=== PATIENT | female | born 1940 | race Caucasian/White ===

== ENCOUNTER 2019-06-03 20:47 | Emergency (ER) | payer OTHER ==
[~2019-06-03] VITALS: Ht 147.3 cm; Wt 141.5 kg
--- NOTE | 2019-06-03 21:10 | NUR ---
Dr. Funez at bedside for MSE.
[2019-06-03] MEDS ORDERED: ONDANSETRON ODT 4 MG TAB.RAPDIS SL ONE (21:15)
[2019-06-03] MEDS ORDERED: ONDANSETRON ODT 4 MG TAB.RAPDIS ONE (21:58)
--- NOTE | 2019-06-03 22:10 | NUR ---
Unable to start IV after multiple attempts, aware.
[2019-06-03 22:16] LABS: BASOPHILS % (AUTO) 0.1 % (0.0-2.0); EOSINOPHILS # (AUTO) 0.1 K/uL (0.0-0.7); EOSINOPHILS % (AUTO) 0.4 % (0.0-7.0); HEMATOCRIT 35.3 % (31.2-41.9); HEMOGLOBIN 11.4 g/dL (10.9-14.3); LYMPHOCYTES # (AUTO) 0.7 K/uL (20.0-40.0); LYMPHOCYTES % (AUTO) 3.5 % (20.5-51.5); MEAN CORPUSCULAR HEMOGLOBIN 31.6 uug (24.7-32.8); MEAN CORPUSCULAR HGB CONC 32 g/dL (32.3-35.6); MEAN CORPUSCULAR VOLUME 97.6 fL (75.5-95.3); MONOCYTES # (AUTO) 0.8 K/uL (2.0-10.0); MONOCYTES % (AUTO) 3.8 % (0.0-11.0); NEUTROPHILS # (AUTO) 19.2 K/uL (1.8-8.9); NEUTROPHILS % (AUTO) 92.2 % (38.5-71.5); PLATELET COUNT (AUTO) 187 K/uL (179-408); RED BLOOD CELL COUNT(AUTO) 3.62 MIL/uL (3.63-4.92); WHITE BLOOD COUNT (AUTO) 20.9 K/uL (3.8-11.8)
[2019-06-03 22:20] LABS: CARBON DIOXIDE 31 mmol/L (21-32); CHLORIDE 100 mmol/L (98-107); CREATININE 4.5 mg/dL (0.6-1.3); GLUCOSE 229 mg/dL (74-106); POTASSIUM 4.4 mmol/L (3.5-5.1); UREA NITROGEN, BLOOD 44 mg/dL (7-18)
--- NOTE | 2019-06-03 22:20 | NUR ---
Pt out of ER for CT.
[2019-06-03 22:25] LABS: ALANINE AMINOTRANSFERASE 10 U/L (14-59); ALKALINE PHOSPHATASE 105 U/L (50-136); ASPARTATE AMINOTRANSFERASE 11 U/L (15-37); BILIRUBIN,DIRECT 0.1 mg/dL (0.0-0.2); BILIRUBIN,TOTAL 0.3 mg/dL (0.2-1.0); LIPASE 159 U/L (73-393); TOTAL PROTEIN, SERUM 7.3 g/dL (6.4-8.2)
[2019-06-03 22:26] LABS: MAGNESIUM 2.3 mg/dL (1.8-2.4); PHOSPHOROUS 2.9 mg/dL (2.5-4.9)
--- NOTE | 2019-06-03 22:45 | NUR ---
Pt back to ER from CT.
--- NOTE | 2019-06-03 23:30 | NUR ---
Inserted in/out west catheter, pt tolerated procedure well, urine sample sent to lab.
[2019-06-03 23:52] LABS: *BILIRUBIN,URIN NEGATIVE (NEGATIVE); *BLOOD, URINE 1+ (NEGATIVE); *CLARITY,URINE CLOUDY (CLEAR); *COLOR,URINE YELLOW (YELLOW); *KETONES,URINE NEGATIVE (NEGATIVE); *UROBILINOGEN,URINE 0.2 E.U./dl (NORMAL); LEUKOCYTE ESTERASE ,URINE 1+ (NEGATIVE); NITRITE, URINE NEGATIVE (NEGATIVE); PH,URINE 5.5 (5.0-8.0); UGLUCOSE TRACE (NEGATIVE)
[2019-06-04 00:05] LABS: WBC,URINE 80-100 /HPF (0-3)
[2019-06-04 00:06] LABS: BACTERIA,URINE MANY /HPF (NONE SEEN); SQUAMOUS EPITHELIAL CELL,UR MODERATE /HPF (NONE SEEN)
--- NOTE | 2019-06-04 00:16 | NUR ---
Patient's daughter, Vani, called and left her phone number .
--- NOTE | 2019-06-04 01:10 | NUR ---
Ultrasound at bedside.
[2019-06-04] MEDS ORDERED: CEFTRIAXONE 1 G VIAL IM ONE (01:15)
[2019-06-04] MEDS ORDERED: CEFTRIAXONE 1 G VIAL ONE (01:42)
[2019-06-04] MEDS ORDERED: LIDOCAINE HCL 1% 20 ML VIAL ONE (01:42)
--- NOTE | 2019-06-04 03:19 | NUR ---
[facility] still awaiting [facility] at [facility], will call back with info.
--- NOTE | 2019-06-04 04:00 | NUR ---
Pt sleeping in bed, no acute signs of distress.
--- NOTE | 2019-06-04 04:59 | NUR ---
[facility], Patient is going to [facility], [id number], Accepting MD is Dr. Mena, Number to report to , and eta is [phone] by [facility].
--- NOTE | 2019-06-04 06:00 | NUR ---
[facility] arrived to ER to transfer patient to [facility], report and documentation given to EMT.
--- NOTE | 2019-06-04 06:10 | NUR ---
Report given to [facility].
== END 2019-06-04 06:12 | disposition short-term general hospital (02) ==
LOC: ER 20:51
DX: N39.0 Urinary tract infection, site not specified (principal); K59.00 Constipation, unspecified; E11.22 Type 2 diabetes mellitus with diabetic chronic kidney disease; N18.6 End stage renal disease; D72.829 Elevated white blood cell count, unspecified; E66.01 Morbid (severe) obesity due to excess calories; E03.9 Hypothyroidism, unspecified; E78.5 Hyperlipidemia, unspecified; R11.0 Nausea; Z99.2 Dependence on renal dialysis; Z88.5 Allergy status to narcotic agent; Z79.82 Long term (current) use of aspirin; Z79.899 Other long term (current) drug therapy
CPT/HCPCS: 36415; 71250; 74176; 76705; 80048; 80076; 81000; 81001; 82962; 83690; 83735; 84100; 85025; 85730; 87040 ×2; 87077; 87086; 87186; 93005; 96372; 99285; J0696; J3490; A4663; C1758; Q0162

== ENCOUNTER 2019-06-06 21:09 | Emergency (ER) | payer OTHER ==
[~2019-06-06] VITALS: Ht 147.3 cm; Wt 136.1 kg
[2019-06-06 21:49] LABS: BASOPHILS % (AUTO) 0.3 % (0.0-2.0); EOSINOPHILS # (AUTO) 0.5 K/uL (0.0-0.7); EOSINOPHILS % (AUTO) 3.3 % (0.0-7.0); HEMATOCRIT 32.5 % (31.2-41.9); HEMOGLOBIN 10.7 g/dL (10.9-14.3); LYMPHOCYTES # (AUTO) 1.4 K/uL (20.0-40.0); LYMPHOCYTES % (AUTO) 10.1 % (20.5-51.5); MEAN CORPUSCULAR HEMOGLOBIN 32.1 uug (24.7-32.8); MEAN CORPUSCULAR HGB CONC 33 g/dL (32.3-35.6); MEAN CORPUSCULAR VOLUME 97.1 fL (75.5-95.3); MONOCYTES # (AUTO) 0.9 K/uL (2.0-10.0); MONOCYTES % (AUTO) 6.6 % (0.0-11.0); NEUTROPHILS # (AUTO) 11.1 K/uL (1.8-8.9); NEUTROPHILS % (AUTO) 79.7 % (38.5-71.5); PLATELET COUNT (AUTO) 180 K/uL (179-408); RED BLOOD CELL COUNT(AUTO) 3.34 MIL/uL (3.63-4.92); WHITE BLOOD COUNT (AUTO) 13.9 K/uL (3.8-11.8)
[2019-06-06 21:52] LABS: CARBON DIOXIDE 30 mmol/L (21-32); CHLORIDE 101 mmol/L (98-107); CREATININE 6.4 mg/dL (0.6-1.3); GLUCOSE 106 mg/dL (74-106); POTASSIUM 4.4 mmol/L (3.5-5.1); UREA NITROGEN, BLOOD 53 mg/dL (7-18)
[2019-06-06 21:58] LABS: ALANINE AMINOTRANSFERASE 21 U/L (14-59); ALKALINE PHOSPHATASE 80 U/L (50-136); ASPARTATE AMINOTRANSFERASE 17 U/L (15-37); BILIRUBIN,DIRECT 0.1 mg/dL (0.0-0.2); BILIRUBIN,TOTAL 0.3 mg/dL (0.2-1.0)
[2019-06-06] MEDS ORDERED: CEFTRIAXONE 1 G VIAL IM ONE (22:45)
--- NOTE | 2019-06-06 22:46 | NUR ---
[facility] pt to go back to [facility]. States they will have one of the MD to call ER MD.
--- NOTE | 2019-06-06 22:51 | NUR ---
Dr. Mitchell spoke with Dr. Ochoa ([facility]). States they will arrange for transportation.
[2019-06-06] MEDS ORDERED: CEFTRIAXONE 1 G VIAL ONE (22:54)
[2019-06-06] MEDS ORDERED: LIDOCAINE HCL 1% 20 ML VIAL ONE (22:54)
--- NOTE | 2019-06-06 23:26 | NUR ---
Received transport info from [facility] ([facility]). BLS Transport, bariatric ([facility]) ETA 0200 AM.
--- NOTE | 2019-06-07 01:34 | NUR ---
[facility] [address] here to transport pt back to [facility]. No acute distress noted. Vital signs stable.
[2019-06-07 01:35] VITALS: BP 109/52
== END 2019-06-07 01:44 | disposition home or self-care (01) ==
LOC: ER 21:09
DX: D72.828 Other elevated white blood cell count (principal); E11.22 Type 2 diabetes mellitus with diabetic chronic kidney disease; N18.6 End stage renal disease; E03.9 Hypothyroidism, unspecified; E78.5 Hyperlipidemia, unspecified; I48.91 Unspecified atrial fibrillation; N39.0 Urinary tract infection, site not specified; Z79.82 Long term (current) use of aspirin; Z79.899 Other long term (current) drug therapy
CPT/HCPCS: 36415; 71045; 80048; 80076; 83605; 84484; 85025; 85730; 93005; 96372; 99285; J0696; J3490; 70030-TC; A4663